=== PATIENT | male | born 1965 | race Caucasian/White ===

== ENCOUNTER 2017-10-09 14:24 | Emergency (ER) | payer OTHER ==
[2017-10-09] MEDS ORDERED: Diphtheria/Tetanus Toxoids,Adult (Td) 0.5 ML SDV IM ONE (14:35)
--- NOTE | 2017-10-10 07:40 | ER ---
DATE OF SERVICE: 10/09/2017 HISTORY OF PRESENT ILLNESS: This 51-year-old male here with the fishhook embedded into the left index finger. The patient was out fishing, and in the course of releasing a fish, the fish flopped, and one of the hooks became embedded in his left index finger. They tried pulling it out a few times and realized that they could not do this. He then decided to come in to have it removed. The patient is not sure of his tetanus status. He thinks it has been a while. MEDICATION ALLERGIES: SULFA. OBJECTIVE: GENERAL APPEARANCE: The patient is awake and alert. No obvious distress. EXTREMITIES: Examining the left index finger reveals 1 hook of a treble hook is embedded into the pad of the index finger. There is no active bleeding at this time. Nursing staff has been soaking the site. DIAGNOSIS: [place] removal. TREATMENT PLAN: I dried the site well, after which I injected about 1 mL of 1% lidocaine without epinephrine locally for anesthesia, and using a string yank method, I was able to easily remove it in the first attempt. We let the site seep for a couple of minutes, after which it was no longer bleeding. The fingertip will be cleaned by nursing staff. Antibiotic ointment and a Band-Aid will be applied. He is to use Tylenol or ibuprofen as needed, and I will give him a prescription for Keflex for 5 days. He can either fill it today and start it or wait and see if any sign of infection develops. The patient has no further questions. NATHANIEL/CHELAL /[id number]
== END 2017-10-09 14:54 | disposition home or self-care (01) ==
LOC: LB.ED 14:24
DX: S60.451A Superficial foreign body of left index finger, initial encounter (principal); Z23 Encounter for immunization; W45.8XXA Other foreign body or object entering through skin, initial encounter
CPT/HCPCS: 90471; 90714; 99283-25